=== PATIENT | female | born 1970 | race Caucasian/White ===

== ENCOUNTER 2017-01-03 12:24 | Observation (INO) | payer MEDICARE ==
[~2017-01-03] VITALS: Ht 162.6 cm; Wt 152.9 kg
--- NOTE | 2017-01-03 21:30 | NUR ---
2119, PT SIGNED AMA PAPER, WITNESSED BY NURSE, SHUN ANAND. IV DC'D. 2127 PT LEFT ROOM AND WAS AT THE ELEVATOR ACCOMPANIED BY SPOUSE.
== END 2017-01-03 21:20 | disposition left against medical advice (07) ==
LOC: MED 12:24
PROVIDERS: ADMIT Internal Medicine
DX: I11.0 Hypertensive heart disease with heart failure (principal); J96.10 Chronic respiratory failure, unspecified whether with hypoxia or hypercapnia; I50.9 Heart failure, unspecified; J44.9 Chronic obstructive pulmonary disease, unspecified; I27.2 Other secondary pulmonary hypertension; G47.33 Obstructive sleep apnea (adult) (pediatric); F17.210 Nicotine dependence, cigarettes, uncomplicated; E89.0 Postprocedural hypothyroidism; M25.50 Pain in unspecified joint; F41.9 Anxiety disorder, unspecified; F32.9 Major depressive disorder, single episode, unspecified; Z99.81 Dependence on supplemental oxygen; Z90.711 Acquired absence of uterus with remaining cervical stump; Z79.899 Other long term (current) drug therapy; Z88.0 Allergy status to penicillin; Z88.8 Allergy status to other drugs, medicaments and biological substances; Z83.3 Family history of diabetes mellitus
CPT/HCPCS: 93306; J1650